=== PATIENT | female | born 1975 | race Two or more races ===

== ENCOUNTER 2023-09-16 07:04 | Day surgery (SDC) | payer MEDICAID ==
[2023-09-13 15:26] LABS: Basophils # (auto) 0.1 10 ^3/uL (0-0.2); Basophils % (auto) 0.6 % (0.0-2.0); Eosinophils # (auto) 0 10 ^3/uL (0-0.8); Eosinophils % (auto) 0.4 % (0.0-7.0); Hematocrit 41.6 % (36.0-46.0); Hemoglobin 13.8 g/dL (12.2-16.2); Lymphocytes # (auto) 1.9 10 ^3/uL (0.4-5.4); Lymphocytes % (auto) 15.4 % (10.0-50.0); Mean Corpuscular Hgb Conc. 33.2 g/dL (32.0-36.0); Mean Corpuscular Volume 87.4 fL (80.0-100.0); Monocytes % (auto) 8.3 % (0.0-12.0); Neutrophils # (auto) 9.3 10 ^3/uL (1.6-8.6); Neutrophils % (auto) 75.3 % (37.0-80.0); Red Blood Cells 4.76 10^6/uL (4.0-5.20); Red Cell Distribution Width 13.6 % (11.8-14.3); White Blood Cell 12.3 10^3/uL (4.4-10.8)
[2023-09-13 15:46] LABS: INR 0.94 (0.9-1.15); Partial Thromboplastin Time 27.7 SEC (24.5-34.5); Prothrombin Time 9.9 sec (9.3-11.8)
[2023-09-13 16:17] LABS: Alanine Aminotransferase 14 U/L (7-40); Alkaline Phosphatase 88 U/L (46-116); Calcium 9.9 mg/dL (8.5-10.1); Carbon Dioxide 31 mmol/L (20-30); Chloride 102 mmol/L (98-107)
[2023-09-13 16:18] LABS: Albumin 4.8 g/dL (3.2-4.8); Anion Gap 3 (5-15); Aspartate Aminotransferase 11 U/L (13-40); BUN/Creatinine Ratio 25.6 (10.0-20.0); Bilirubin, Total 0.9 mg/dL (0.2-1.0); Blood Urea Nitrogen 20 mg/dL (9-23); Glucose 105 mg/dL (74-106); Potassium 4.3 mmol/L (3.5-5.1); Sodium 136 mmol/L (136-145)
[~2023-09-16] VITALS: Ht 160 cm; Wt 99.8 kg
[~2023-09-16 07:04] MED LIST: ALBUAER3 IN; FLUT1SPR5; OMEG1CHW2 PO
[2023-09-16] MEDS ORDERED: LIDOCAINE 2% (LOCAL ANESTH.) PF 5ml SDV ONE (08:13)
[2023-09-16] MEDS ORDERED: LIDOCAINE 1% INJ PF 5ML AMP ONE (08:13)
[2023-09-16] MEDS ORDERED: PROPOFOL 10 MG/ML 20 ML IV ONE (08:13)
[2023-09-16 08:36] VITALS: RESP 23; TEMP 97.7; O2SAT 100
[2023-09-16 08:55] VITALS: BP 102/43; PULSE 87; RESP 23; O2SAT 97
== END 2023-09-16 09:47 | disposition home or self-care (01) ==
LOC: GI 07:04
PROVIDERS: ATTEND Internal Medicine Gastroenterology
DX: R11.2 Nausea with vomiting, unspecified (principal); J45.909 Unspecified asthma, uncomplicated; Z98.890 Other specified postprocedural states
CPT/HCPCS: 36415; 43239; 80053; 81025; 85025; 85610; 85730; J2001; J2704; J7030